=== PATIENT | male | born 1930 | race Caucasian/White ===

== ENCOUNTER 2017-04-04 03:01 | Observation (INO) | payer MEDICARE ==
--- NOTE | ~2017-04-04 | OR ---
Unit #: [id number] #: [id number] Patient: GERSON BRUNO [id number] [address] [address] [id number] I MR#: [id number] NAME: GERSON BRUNO ROOM: 215 Date of Procedure: 04/04/2017 Admission Date: 04/04/2017 Surgeon: Wayne Corado M.D. : 1930 Attending Physician: Wayne Corado M.D. Primary Care Physician: Ildefonso Soni M.D. OPERATIVE REPORT PROCEDURES PERFORMED Cystoscopy and left retrograde pyelogram. PREOPERATIVE DIAGNOSES Left hydronephrosis, renal colic. POSTOPERATIVE DIAGNOSIS Left hydronephrosis, renal colic. ANESTHESIA General. DESCRIPTION OF PROCEDURE After informed consent, the patient was taken to the operating room, placed on general anesthetic, positioned lithotomy. His penis and perineum were prepped and draped in usual sterile fashion. Cystoscopy was performed showing a normal urethra. He had some BPH. He had a trabeculated bladder, some diverticula. No tumors, no stones visible. The entire bladder was inspected. Normal appearing left and right ureteral orifices. A retrograde pyelogram was performed of the left collecting system showing a dilated collecting system. The collecting system appeared to have contrast in it from previous CT scan I suspect. The Sensor wire was placed under fluoroscopy up into the collecting system. A 5 x 26 stent was placed without the tether attached. There was good coil in the bladder and collecting system. Urine specimen was obtained for culture sensitivity after the stent was placed. The patient was taken to recovery, will be admitted to the floor. He tolerated the procedure well. Dictated by... Raysa Syed/kellyl TD: 04/04/2017 23:49 JOB #: [id number] Unit #: [id number] #: [id number] Patient: GERSON BRUNO OPERATIVE REPORT Page 1 of 1 X Wayne Corado MD PROCEDURE OPERATIVE NOTE
--- NOTE | ~2017-04-04 | CT2 ---
[facility] A Service of [facility] & [facility] RADIOLOGY TEXT RESULTS PATIENT: GERSON BRUNO LOCATION: C2A 215- : [birth year] UNIT #: [id number] AGE: [address]: Wayne Corado MD SEX: M ORDER DR: [id number] [facility] [address]. [place], [place] [address] [id number] I MR#: [id number] Acc #: [id number] NAME: GERSON BRUNO : 1930 SEX: M STUDY DATE/TIME: 04/04/2017 5:02 UNIT: C2A ROOM: 215 STUDY DESCRIPTION: CT Abd and Pelv W Cont Attending Physician: Wayne Corado M.D. Ordering Physician: Cornelius Boone M.D. Primary Care Physician: Ildefonso Soni M.D. MEDICAL IMAGING REPORT This report is preliminary unless electronic signature is present EXAM CT abdomen and pelvis with contrast HISTORY Left-sided flank pain since last night, nausea. TECHNIQUE This CT examination was performed with one or more of the following radiation dose reduction techniques: automatic exposure control, adjustment of mA and/or kV according to patient size, and iterative reconstruction. FINDINGS Axial images performed through the abdomen and pelvis following IV contrast. Multiplanar reconstructed images reviewed at a workstation. Lung bases unremarkable. Liver, spleen and gallbladder appear normal. Pancreas and adrenal glands unremarkable. The left kidney demonstrates a large lobulated but apparent unilocular cystic lesion within the central aspect of the left kidney. Differential would include hydronephrosis versus peripelvic cyst. Due to the thinning of the cortex and slight decreased enhancement of the left kidney, I favor this represents hydronephrosis but no communication to a distended ureter is identified and this may represent the sequela of a congenital UPJ stenosis. No obstructing stone or lesion is identified. The right kidney demonstrates a few small low-attenuation lesions most likely representing cysts. GI tract remarkable for colonic diverticulosis predominantly involving the sigmoid colon. No acute diverticulitis. The appendix is normal. Retroperitoneum demonstrates atherosclerotic changes. PELVIS: Bladder, prostate unremarkable. Osseous structures remarkable for biconcave compression fracture L1 appears chronic. Grade 1 STS. [facility] A Service of [facility] & [facility] RADIOLOGY TEXT RESULTS PATIENT: GERSON BRUNO LOCATION: [facility] 215-01 : [birth year] UNIT #: [id number] AGE: [address]: Wayne Corado MD SEX: M ORDER DR: spondylolisthesis noted L4 on L5. Lower lumbar spine facet arthropathy. IMPRESSION 1. 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 No communication to a distended ureter is identified and no obstructing stone or lesion is seen. Less likely this could represent a peripelvic cyst. There does appear to be a moderate amount of perinephric edema and stranding which may support an acute obstruction. This is also supported by slight decreased enhancement of the left kidney but again a discrete obstructing lesion is not identified. Further urologic evaluation may be warranted. 2. Diverticulosis without diverticulitis. 3. Appendix normal. Dictated by... Primitivo Kwan M.D. THIS IS AN ELECTRONICALLY VERIFIED REPORT Primitivo Kwan M.D. at 04/04/2017 9:59 PM ELLIS/eva TD: 04/04/2017 10:05 JOB #: [id number] MEDICAL IMAGING REPORT Page 1 of 1 COPY
--- NOTE | ~2017-04-04 | DS ---
Unit #: [id number] #: [id number] Patient: GERSON BRUNO [id number] [address] [address] [id number] I MR#: [id number] NAME: GERSON BRUNO ROOM: 215 Age: 86 Sex: M Admission Date: 04/04/2017 : 1930 Discharge Date: 04/05/2017 Attending Physician: Wayne Corado M.D. Primary Care Physician: Ildefonso Soni M.D. DISCHARGE SUMMARY DIAGNOSIS Left renal colic ureteropelvic junction obstruction. PROCEDURE Cystoscopy, left retrograde pyelogram, stent placement. The patient will be discharged home after having a stent placed. He is feeling a whole lot better, no longer has flank pain. He has a little bit of more frequency but denies dysuria. His urine is blood tinged but no clots. The patient and his daughter are in the room. The patient's son wants him to follow up with one of my partners in the group instead of me. I told him that would be fine. The patient's son was not present today or yesterday. I have spoken to the patient and his daughter but I have never spoken to one of his sons. The patient will be discharged home today with antibiotics, pain medication. I have told them to see followup with us in the office in two to three weeks. He has history of mycobacterium infection. He will continue his home medications. At this time, there is no evidence to suggest this has something to do with that infection but I did have a urine culture obtained and it is still pending. He will go home with some pain medication as well. 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 SOCIAL HISTORY He does not smoke. FAMILY HISTORY Noncontributory. ALLERGIES No known drug allergies. MEDICATIONS 1. Zithromax. 2. Rifampin. 3. Ethambutol. On exam today, he is afebrile. Vital signs stable. Abdomen soft without rebounding or guarding. No CVA tenderness. Dictated by... Wayne Corado M.D. Unit #: [id number] #: [id number] Patient: GERSON BRUNO RAVI/kwabena TD: 04/05/2017 11:19 JOB #: [id number] DISCHARGE SUMMARY Page 1 of 1 X Wayne Corado MD DISCHARGE SUMMARY
--- NOTE | ~2017-04-04 | EKG ---
PATIENT: GERSON BRUNO UNIT #: [id number] Ventricular Rate: 67 BPM Atrial Rate: 67 BPM P-R Interval: 208 ms QRS Duration: 100 ms Q-T Interval: 396 ms QTC Calculation(Bezet): 418 ms P Gal[place]: 67 degrees Calculated R Gal[place]: 26 degrees Calculated T Gal[place]: 42 degrees Diagnosis Line: Normal sinus rhythm Diagnosis Line: Normal ECG Diagnosis Line: No previous ECGs available Diagnosis Line: Confirmed by NATACHA NIEVES MD ([id number]) on 04/06/2017 Diagnosis Line: 9:43:45 AM INTERPRETING MD: LIZBETH MONROE
[~2017-04-04 03:01] MED LIST: FLONASE 0.05% N16 G1; KEFLEX125 MG/5 M PO; KEFLEX500 MG PO
[2017-04-04 03:26] LABS: BASOPHIL# 0.1 X10e3 (0-0.3); BASOPHIL% 0.8 % (0-2.5); EOSINOPHIL# 0.4 X10e3 (0-0.7); EOSINOPHIL% 4.7 % (0.0-7.0); HEMATOCRIT 38.5 % (38.0-50.0); LYMPHOCYTE# 1.3 X10e3 (1.0-3.5); LYMPHOCYTE% 15.5 % (17.0-45.0); MEAN CELL VOLUME 92.5 FL (83-96); MEAN CORPUSCULAR HEMOGLOBIN 31.1 PG (28-34); MEAN CORPUSCULAR HGB CONC 33.7 g/dL (30-36); MEAN PLATELET VOLUME 7.3 FL (6.5-11.5); MONOCYTE# 0.7 X10e3 (0-1.0); MONOCYTE% 8.3 % (3.0-12.0); NEUTROPHIL# 5.7 X10e3 (1.5-7.1); NEUTROPHIL% 70.7 % (40-75); PLATELET COUNT 286 X10e3 (140-420); RED BLOOD COUNT 4.16 X10e (3.90-5.60); RED CELL DISTRIBUTION WIDTH 14.1 % (11.0-15.5); WHITE BLOOD COUNT 8.1 X10e3 (4.0-10.5)
[2017-04-04 03:31] LABS: DIFF IND NO
[2017-04-04 03:53] LABS: ALBUMIN SERUM 3.9 g/dL (3.5-5.0); BILIRUBIN,TOTAL 0.4 mg/dL (0.2-2.0); CALCIUM SERUM 8.8 mg/dL (8.4-10.2); CREATININE SERUM 1.2 mg/dL (0.6-1.4); GLOM FILT RATE Estimated 54.1 mL/min (>60); POTASSIUM 4.4 mmol/L (3.5-5.1); PROTEIN TOTAL SERUM 6.7 g/dL (6.0-8.3)
[2017-04-04 04:49] LABS: POC - CKMB 2.2 ng/mL (0.0-7.9); POC - TROPONIN <0.05 ng/mL (<=0.05)
[2017-04-04 05:36] LABS: URINE SOURCE CLEAN CATCH
[2017-04-04 05:41] LABS: URINE APPEARANCE CLEAR; URINE BILIRUBIN NEG (NEG); URINE BLOOD NEG (NEG); URINE COLOR YELLOW; URINE GLUCOSE NEG (NEG); URINE KETONE NEG (NEG); URINE LEUKOCYTE ESTERASE NEG (NEG); URINE NITRATE NEG (NEG); URINE PH 6.5 (5-8); URINE PROTEIN NEG (NEG); URINE SPECIFIC GRAVITY 1.018 (1.003-1.035); URINE UROBILINOGEN 0.2 MG/DL (NEG)
[2017-04-04 05:48] LABS: CULTURE INDICATED? NO
[2017-04-04] MEDS ORDERED: ETHAMBUTOL HCL100 MG (06:01)
[2017-04-04] MEDS ORDERED: AZITHROMYCIN250 MG (06:03)
[2017-04-04] MEDS ORDERED: RIFADIN150 MG (06:03)
[2017-04-04] MEDS ORDERED: MYAMBUTOL400 M1 PO (15:02)
[2017-04-04] MEDS ORDERED: RIFAMPIN300 M1 PO (15:03)
[2017-04-04] MEDS ORDERED: ZITHROMAX500 MG PO (15:03)
[2017-04-05] MEDS ORDERED: LORCET 5-325 M1 EACH PO (09:33)
[2017-04-05] MEDS ORDERED: BACTRIM DS TAB1 EACH PO (09:36)
== END 2017-04-05 10:50 | disposition home or self-care (01) ==
LOC: CED 03:01 → CEDOF 06:15 → CED 06:35 → CEDOF 06:35 → C2A 06:35 → CEDOF 09:44 → C2A 09:44
PROVIDERS: Emergency Medicine
DX: N13.0 Hydronephrosis with ureteropelvic junction obstruction (principal); N40.0 Benign prostatic hyperplasia without lower urinary tract symptoms; N32.3 Diverticulum of bladder; K57.30 Diverticulosis of large intestine without perforation or abscess without bleeding; Z86.19 Personal history of other infectious and parasitic diseases
CPT/HCPCS: 74177; 80053; 81003; 82150; 82553; 83690; 84484; 85025; 87086; 93005; 96361; 96374; 96375; 96376; 99285; C2617; G0378; J0696; J2270; J2405; J3010; Q9967

== ENCOUNTER → 2017-08-12 | Outpatient (CLI) | payer MEDICARE ==
[~2017-08-12] MED LIST changes: +AZITHROMYCIN250 MG; +BACTRIM DS TAB1 EACH PO; +ETHAMBUTOL HCL100 MG; +LORCET 5-325 M1 EACH PO; +MYAMBUTOL400 M1 PO; +RIFADIN150 MG; +RIFAMPIN300 M1 PO; +ZITHROMAX500 MG PO
--- NOTE | ~2017-08-12 | US77 ---
[facility] A Service of [facility] & [facility] RADIOLOGY TEXT RESULTS PATIENT: GERSON BRUNO LOCATION: [facility] : [birth year] UNIT #: [id number] AGE: [address]: Philip Kwan MD SEX: M ORDER DR: [id number] [facility] [address] [place], [place] [address] [id number] MR#: [id number] Acc #: [id number] NAME: GERSON BRUNO : 1930 SEX: M STUDY DATE/TIME: 08/12/2017 12:23 UNIT: [facility] ROOM: STUDY DESCRIPTION: US Kidney Bilateral Complete Attending Physician: Philip Kwan M.D. Referring Physician: Philip Kwan M.D. Ordering Physician: Philip Kwan M.D. Primary Care Physician: Blake Rivera Jr., M.D. MEDICAL IMAGING REPORT This report is preliminary unless electronic signature is present EXAM Renal ultrasound INDICATIONS Left-sided hydronephrosis identified on a CT scan which was performed April 04, 2017. Patient has a left-sided stent. TECHNIQUE Petty-scale, color Doppler sonographic images were obtained through the kidneys and bladder. FINDINGS Focal cyst is identified on the right kidney, measures 1.8 x 1.1 x 1.4 cm. No hydronephrosis is seen on the right. Wire Preparation Worker reports that multiple cysts are present on the left. I am actually not convinced that these are cysts and this may actually reflect persistent left-sided hydronephrosis, despite the presence of a stent. The distal end of the stent can be seen within the urinary bladder. Further evaluation with CT is recommended. IMPRESSION 1. Right renal cysts. 2. Wire Preparation Worker has measured anechoic structures within the left kidney which she thinks may reflect cysts. In fact, I question if this actually reflects persistent left-sided hydronephrosis, despite the presence of a ureteral stent. Stent can only be seen distally within the bladder. Given history, I would suggest further evaluation with CT. Dictated by... Cailin F. Roca, M.D. THIS IS AN ELECTRONICALLY VERIFIED REPORT [facility] A Service of [facility] & [facility] RADIOLOGY TEXT RESULTS PATIENT: GERSON BRUNO LOCATION: [facility] #: [id number] : [birth year] UNIT #: [id number] AGE: [address]: Philip Kwan MD SEX: M ORDER DR: Cailin Roca M.D. at 08/15/2017 4:57 PM AFF/pcl TD: 08/12/2017 20:25 JOB #: [id number] MEDICAL IMAGING REPORT Page 1 of 1 COPY
== END | disposition home or self-care (01) ==
LOC: CGUS 11:55
DX: N13.30 Unspecified hydronephrosis (principal); Q62.11 Congenital occlusion of ureteropelvic junction; Q61.02 Congenital multiple renal cysts; R93.422 Abnormal radiologic findings on diagnostic imaging of left kidney; Z96.0 Presence of urogenital implants
CPT/HCPCS: 76770